=== PATIENT | female | born 1960 | race Caucasian/White ===

== ENCOUNTER 2017-05-29 19:20 | Emergency (ER) | payer MEDICAID, OTHER ==
--- NOTE | 2017-05-29 19:51 | C.PDOC ---
History Of Present Illness 56 y/o female presents to the ED for evaluation of headache and mild nausea since last night. Patient notes she ran out of her hypertension medication and lost insurance coverage. Patient denies any other associated symptoms at this time. [place], MILD NAUSEA SINCE LAST NIGHT. RAN OUT OF HTN MEDS, LOST INSURANCE. NO OTHER ASSOC SX EXAM MILD DIST NONTOXIC HEENT NO PHOTOPHOBIA NECK SUPPLE NARD RRR ABD NEG NEURO NO FOCAL DEF Time Seen by Provider: 05/29/17 19:38 Chief Complaint (Nursing): High Blood Pressure History Per: Patient History/Exam Limitations: no limitations Onset/Duration Of Symptoms: Hrs Current Symptoms Are (Timing): Still Present Associated Symptoms: Headache Exacerbating Factor(s): Pos: Recently Missed Doses Of Medication Additional History Per: Patient Past Medical History Reviewed: Historical Data, Nursing Documentation, Vital Signs Vital Signs: Last Vital Signs Temp 97.8 F 05/29/17 21:14 Pulse 75 05/29/17 21:14 Resp 16 05/29/17 21:14 BP 148/93 H 05/29/17 21:14 Pulse Ox 100 05/29/17 21:14 - Medical History PMH: HTN Surgical History: No Surg Hx Family History: States: Unknown Family Hx - Social History Hx Tobacco Use: No Hx Alcohol Use: No Hx Substance Use: No - Immunization History Hx Tetanus Toxoid Vaccination: No Hx Influenza Vaccination: Yes Hx Pneumococcal Vaccination: No Review Of Systems Cardiovascular: Negative for: Chest Pain Gastrointestinal: Positive for: Nausea (mild) Neurological: Positive for: Headache. Negative for: Weakness, Numbness Physical Exam - Physical Exam Appears: Non-toxic, Other (in mild distress ) Skin: Normal Color, Warm, Dry Head: Atraumatic, Normacephalic Eye(s): bilateral: Normal Inspection, Other (no photophobia ) Ear(s): Bilateral: Normal Nose: Normal, No Discharge Oral Mucosa: Moist Throat: Normal, No Erythema, No Exudate Neck: Supple Chest: Symmetrical, No Deformity, No Tenderness Cardiovascular: Rhythm Regular, No Murmur Respiratory: Normal Breath Sounds, No Rales, No Rhonchi, No Wheezing, Other (no acute respiratory distress ) Gastrointestinal/Abdominal: Soft, No Tenderness, No Guarding, No Rebound Extremity: Normal ROM, Capillary Refill (less than 2 seconds ) Neurological/Psych: Oriented x3, Normal Speech, Normal Cognition, Other (no focal deficits ) Gait: Steady ED Course And Treatment - Laboratory Results Result Diagrams: 05/29/17 20:00 05/29/17 20:00 ECG: Interpreted By Me ECG Rhythm: Sinus Rhythm ECG Interpretation: Normal Rate From EC O2 Sat by Pulse Oximetry: 99 (on RA) Pulse Ox Interpretation: Normal Progress Note: CT Head and EKG ordered and reviewed. Patient received Norvasc PO , Trandate IVP, Tylenol PO, Zestil PO, and Zofran IVP. Progress - Re-Evaluation Re-evaluation Note: 05/29/17 21:56 IMPROVED. APPEARS COMFORTABLE. NEURO INTACT CT NEG - Data Reviewed Data Reviewed: Lab, Diagnostic imaging, EKG, Old records Disposition Counseled Patient/Family Regarding: Studies Performed, Diagnosis, Need For Followup, Rx Given - Disposition Referrals: Non [facility] Provider, [Primary Care Provider] - [facility] [Outside] [facility] [Outside] Disposition: HOME/ ROUTINE Disposition Time: 21:56 Condition: IMPROVED Prescriptions: amLODIPine [Norvasc] 10 mg PO DAILY #30 tab Atenolol 50 mg PO DAILY #30 tablet Lisinopril [Zestril] 20 mg PO DAILY #30 tab Instructions: Hypertension (ED) Forms: [employer] (Barbadian) Print Language: UPPER SORBIAN - Clinical Impression Clinical Impression: Hypertension, uncontrolled, Headache, Noncompliance with medication regimen - Scribe Statement The provider has reviewed the documentation as recorded by the Scribe (Josefina Pineda) Provider Attestation: All medical record entries made by the Scribe were at my direction and personally dictated by me. I have reviewed the chart and agree that the record accurately reflects my personal performance of the history, physical exam, medical decision making, and the department course for this patient. I have also personally directed, reviewed, and agree with the discharge instructions and disposition.
[2017-05-29] MEDS ORDERED: Labetalol 25mg/5ml Syringe IVP STA (19:52)
[2017-05-29] MEDS ORDERED: Labetalol 25mg/5ml Syringe ONE (20:06)
[2017-05-29 20:09] LABS: BASO % 0.4 % (0.0-2.0); EOS # 0.1 K/uL (0.0-0.7); EOS % 1.5 % (0.0-4.0); HEMATOCRIT 40.6 % (34.0-47.0); LYMPH # 2.8 K/uL (1.0-4.3); LYMPH % 29.9 % (20.0-40.0); MEAN CELL VOLUME 83.2 fL (81.0-99.0); MEAN CORPUSCULAR HGB CONC 32.4 g/dL (33.0-37.0); MEAN PLATELET VOLUME 8.6 fL (7.2-11.7); MONO # 0.8 K/uL (0.0-0.8); MONO % 8.4 % (0.0-10.0); RED CELL DISTRIBUTION WIDTH 14.2 % (11.5-14.5); WHITE BLOOD COUNT 9.5 K/uL (4.8-10.8)
[2017-05-29 20:11] LABS: CHLORIDE 105 mmol/L (98-107); SODIUM 141 mmol/L (132-148)
[2017-05-29 20:12] LABS: POTASSIUM 4.6 mmol/L (3.6-5.2)
[2017-05-29 20:14] LABS: GFR AFRICAN-AMERICAN > 60
[2017-05-29 20:15] LABS: BLOOD UREA NITROGEN 17 mg/dL (7-17); CARBON DIOXIDE 25 mmol/L (22-30); GLUCOSE,RANDOM 87 mg/dL (65-105)
--- NOTE | 2017-05-29 21:53 | CT ---
EXAM: CT Head Without Intravenous Contrast EXAM DATE/TIME: 05/29/2017 7:51 PM CLINICAL HISTORY: 56 years old, female; Condition or disease; Headache; Headache not specified; Additional info: Headache HTN TECHNIQUE: Axial computed tomography images of the head/brain without intravenous contrast. All CT scans at this facility use one or more dose reduction techniques, viz.: automated exposure control; ma/kV adjustment per patient size (including targeted exams where dose is matched to indication; i.e. head); or iterative reconstruction technique. COMPARISON: There are no prior studies for comparison. FINDINGS: Brain: Ventricles are normal in size and configuration. There is no midline shift. There are no intra-axial or extra-axial mass lesions or areas of hemorrhage. There are no abnormal fluid collections. Victor-white differentiation is maintained. Ventricles: See above. Bones: Cranial vault is intact. Soft tissues: unremarkable Sinuses: There is no acute sinusitis. Ears and mastoids: Middle ears and mastoids are unremarkable Orbits: Orbital contents are unremarkable. IMPRESSION: No acute intracranial abnormality
[2017-05-29 21:58] VITALS: O2SAT 99
[2017-05-29 22:12] VITALS: BP 148/97; PULSE 68; RESP 18; TEMP 97.6
--- NOTE | 2017-05-31 01:39 | CARD ---
APPROVED REPORT EKG Measurement Heart [id number] <Conclusion> Normal sinus rhythm Normal ECG
== END 2017-05-29 22:12 | disposition home or self-care (01) ==
LOC: SUPCPDRO 19:20 → C.ER 19:20
DX: I10 Essential (primary) hypertension (principal); R51 Headache; Z91.14 Patient's other noncompliance with medication regimen
CPT/HCPCS: 70450; 80048; 85025; 93005; 96374; 96375; 99285; J2405

== ENCOUNTER 2017-09-27 14:54 | Emergency (ER) | payer OTHER ==
[2017-09-27 15:23] VITALS: BP 122/86; PULSE 87; TEMP 100.5; O2SAT 100
--- NOTE | 2017-09-27 15:40 | C.PDOC ---
Time Seen by Provider: 09/27/17 15:26 Chief Complaint (Nursing): Flu-like Symptoms Past Medical History Vital Signs: Last Vital Signs Temp 100.5 F H 09/27/17 15:19 Pulse 87 09/27/17 15:19 Resp 20 09/27/17 15:19 BP 122/86 09/27/17 15:19 Pulse Ox 100 09/27/17 15:19 - Medical History PMH: HTN Family History: States: Unknown Family Hx - Social History Hx Tobacco Use: No Hx Alcohol Use: No Hx Substance Use: No - Immunization History Hx Tetanus Toxoid Vaccination: No Hx Influenza Vaccination: Yes Hx Pneumococcal Vaccination: No ED Course And Treatment O2 Sat by Pulse Oximetry: 100 Disposition - Disposition Referrals: at [facility] [Outside] Disposition: HOME/ ROUTINE Disposition Time: 15:37 Condition: STABLE Additional Instructions: Ms. [place], thank you for letting us take care of you today. Return to the ER if your symptoms worsen, or if any problems. Take the medication listed below as prescribed. You need to be re-evaluated by the doctor. Please call the [facility] at the phone number listed below to make an appointment. Prescriptions: Albuterol HFA [Ventolin HFA 90 mcg/actuation (8 g)] 2 puff IH [id number] PRN #1 inhaler PRN Reason: Cough Oseltamivir Phosphate [Tamiflu] 1 tab PO BID #9 capsule Instructions: Influenza (ED) Forms: General Discharge Instructions Print Language: PAKISTANI - POA Present On Arrival: None - Clinical Impression Clinical Impression: Influenza-like illness
[2017-09-27 16:10] VITALS: RESP 16
== END 2017-09-27 16:09 | disposition home or self-care (01) ==
LOC: C.ER 14:54
DX: J11.1 Influenza due to unidentified influenza virus with other respiratory manifestations (principal)

== ENCOUNTER 2017-11-10 09:07 | Emergency (ER) | payer OTHER ==
[2017-11-10 09:16] VITALS: BP 143/90; PULSE 88; RESP 20; TEMP 97.7; O2SAT 97
--- NOTE | 2017-11-10 09:59 | C.PDOC ---
History Of Present Illness 57 yr old female presents to the ER requesting refill of her HTN medicine. Patient currently denies fever, chills, chest pain, SOB, nausea, vomiting, weakness, numbness or headache. Time Seen by Provider: 11/10/17 09:39 Chief Complaint (Nursing): Med Refill History Per: Patient History/Exam Limitations: no limitations Onset/Duration Of Symptoms: Unknown Past Medical History Reviewed: Historical Data, Nursing Documentation, Vital Signs Vital Signs: Last Vital Signs Temp 97.7 F 11/10/17 09:14 Pulse 88 11/10/17 09:14 Resp 20 11/10/17 09:14 BP 143/90 11/10/17 09:14 Pulse Ox 97 11/10/17 10:00 - Medical History PMH: HTN Family History: States: Stroke - Social History Hx Tobacco Use: No Hx Alcohol Use: No Hx Substance Use: No - Immunization History Hx Tetanus Toxoid Vaccination: No Hx Influenza Vaccination: Yes Hx Pneumococcal Vaccination: No Review Of Systems Except As Marked, All Systems Reviewed And Found Negative. Constitutional: Negative for: Fever, Chills Cardiovascular: Negative for: Chest Pain Respiratory: Negative for: Shortness of Breath Gastrointestinal: Negative for: Nausea, Vomiting Neurological: Negative for: Weakness, Numbness, Headache Physical Exam - Physical Exam Appears: Non-toxic, No Acute Distress Skin: Warm, Dry, No Rash Eye(s): bilateral: Normal Inspection, PERRL, EOMI Oral Mucosa: Moist Cardiovascular: Rhythm Regular, No Murmur Respiratory: Normal Breath Sounds, No Rales, No Rhonchi, No Stridor, No Wheezing Extremity: Normal ROM, No Swelling Neurological/Psych: Oriented x3, Normal Speech ED Course And Treatment O2 Sat by Pulse Oximetry: 97 (RA) Pulse Ox Interpretation: Normal Disposition Counseled Patient/Family Regarding: Diagnosis, Need For Followup, Rx Given - Disposition Referrals: [facility] [Outside] Disposition: HOME/ ROUTINE Disposition Time: 09:56 Condition: STABLE Additional Instructions: follow up with your doctor in 2 days call to make an appointment take medications as prescribed return to ER if symptoms worsens or progress Prescriptions: amLODIPine [Norvasc] 10 mg PO DAILY #30 tab Atenolol 50 mg PO DAILY #30 tablet Lisinopril [Prinivil] 20 mg PO DAILY #30 tablet Instructions: High Blood Pressure Emergencies Forms: Gen Discharge Inst Andorran, [facility] (Andorran) Print Language: UZBEK - Clinical Impression Clinical Impression: Hypertension - Scribe Statement The provider has reviewed the documentation as recorded by the Nathanibe Denia Diaz Provider Attestation: All medical record entries made by the Nathanibe were at my direction and personally dictated by me. I have reviewed the chart and agree that the record accurately reflects my personal performance of the history, physical exam, medical decision making, and the department course for this patient. I have also personally directed, reviewed, and agree with the discharge instructions and disposition.
== END 2017-11-10 10:06 | disposition home or self-care (01) ==
LOC: C.ER 09:07
DX: Z76.0 Encounter for issue of repeat prescription (principal); I10 Essential (primary) hypertension

== ENCOUNTER 2018-02-11 10:54 | Emergency (ER) | payer OTHER ==
[2018-02-11 11:06] VITALS: RESP 18; TEMP 98.3; O2SAT 100
--- NOTE | 2018-02-11 12:06 | C.PDOC ---
History Of Present Illness 57yo female, presents to ED for evaluation of new onset bilateral lower leg swelling for the past 3 days. Patient states the swelling is worse at night and resolves in the morning. She is compliant with her blood pressure medication and denies any diuretic use. She denies any associated chest pain, shortness of breath or dyspnea on exertion. Patient has a secondary complaint stating she feels there might be an insect in her right ear since last night. She denies any hearing changes, ear discharge or pain. No other complaints. 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) History/Exam Limitations: no limitations Onset/Duration Of Symptoms: Days Current Symptoms Are (Timing): Still Present Recent travel outside of the [place]: No Additional History Per: Patient Past Medical History Reviewed: Historical Data, Nursing Documentation, Vital Signs Vital Signs: Last Vital Signs Temp 98.3 F 02/11/18 11:04 Pulse 80 02/11/18 11:04 Resp 18 02/11/18 11:04 BP 119/85 02/11/18 11:04 Pulse Ox 100 02/11/18 12:18 - Medical History PMH: HTN Surgical History: No Surg Hx Family History: States: Unknown Family Hx, Stroke - Social History Hx Tobacco Use: No Hx Alcohol Use: No Hx Substance Use: No - Immunization History Hx Tetanus Toxoid Vaccination: No Hx Influenza Vaccination: Yes Hx Pneumococcal Vaccination: No Review Of Systems Except As Marked, All Systems Reviewed And Found Negative. Constitutional: Negative for: Fever, Chills ENT: Positive for: Other (foreign body in ear). Negative for: Ear Pain, Ear Discharge Cardiovascular: Negative for: Chest Pain Respiratory: Negative for: Shortness of Breath, SOB with Excertion Musculoskeletal: Positive for: Other (bilateral leg swelling) Physical Exam - Physical Exam Appears: Non-toxic, No Acute Distress Skin: Normal Color, Warm, Dry Head: Atraumatic, Normacephalic Eye(s): bilateral: Normal Inspection Ear(s): Bilateral: Normal (no foreign body noted in ear canals) Oral Mucosa: Moist Neck: Normal ROM, Supple Chest: Symmetrical Cardiovascular: Rhythm Regular Respiratory: Normal Breath Sounds, No Rales Extremity: Normal ROM, Pedal Edema (scant), Other (no aymmetry noted to bilateral lower extremities) Neurological/Psych: Oriented x3 ED Course And Treatment O2 Sat by Pulse Oximetry: 100 (RA) Pulse Ox Interpretation: Normal - Physician Consult Information Time Consulting Physician Contacted: 12:21 Outcome Of Conversation: D/W HOSP: NO ADDITIONAL MEDS RECOMMENDED GIVEN CURRENT BP, OTHER ASSOC SX. ADVISES COMPRESSION STOCKINGS, ELEVATION, FU CLINIC. Disposition Counseled Patient/Family Regarding: Diagnosis, Need For Followup - Disposition Referrals: [facility] [Outside] [facility] [Outside] Disposition: HOME/ ROUTINE Disposition Time: 12:22 Condition: GOOD Instructions: Dependent Edema (DC) Forms: [employer] (Slovenian) Print Language: DIVEHI - Clinical Impression Clinical Impression: Peripheral edema - Scribe Statement The provider has reviewed the documentation as recorded by the Scribe (Lizbeth Field) Provider Attestation: All medical record entries made by the Scribe were at my direction and personally dictated by me. I have reviewed the chart and agree that the record accurately reflects my personal performance of the history, physical exam, medical decision making, and the department course for this patient. I have also personally directed, reviewed, and agree with the discharge instructions and disposition.
[2018-02-11 12:29] VITALS: BP 127/87; PULSE 81
== END 2018-02-11 12:29 | disposition home or self-care (01) ==
LOC: C.ER 10:54
DX: R60.0 Localized edema (principal); I10 Essential (primary) hypertension